=== PATIENT | female | born 1970 | race Caucasian/White ===

== ENCOUNTER 2021-10-19 16:59 | Outpatient (REF) | payer MEDICAID, SELFPAY ==
[2021-10-21 09:11] LABS: Carbohydrate Antigen 19-9 20 U/mL (<34)
== END 2021-10-19 17:00 | disposition home or self-care (01) ==
LOC: HO.LAB 16:59
PROVIDERS: PCP Internal Medicine; Visit Provider Internal Medicine
DX: K86.2 Cyst of pancreas (principal); D49.0 Neoplasm of unspecified behavior of digestive system
CPT/HCPCS: 36415; 86301

== ENCOUNTER 2022-07-19 16:59 | Outpatient (REF) | payer MEDICAID, SELFPAY ==
[2022-07-19 17:46] LABS: Blood Urea Nitrogen 15 mg/dL (9-16); Estimated Glomerular Filt Rate > 60
[2022-07-19 18:08] LABS: Thyroid Stimulating Hormone 0.82 uIU/mL (0.32-4.0)
== END 2022-07-19 17:00 | disposition home or self-care (01) ==
LOC: HO.LAB 16:59
PROVIDERS: Absent Provider Internal Medicine; Visit Provider Internal Medicine
DX: E03.8 Other specified hypothyroidism (principal); D49.0 Neoplasm of unspecified behavior of digestive system; K86.2 Cyst of pancreas
CPT/HCPCS: 36415; 82565; 84443; 84520

== ENCOUNTER 2022-11-16 11:54 | Outpatient (REF) | payer MEDICAID, SELFPAY ==
--- NOTE | 2022-11-16 10:00 | EMG_ITS ---
Right median and ulnar motor and sensory studies were performed. Right radial sensory and median and lateral antecubital sensory studies were performed. Needle examination was performed. IMPRESSION: This study did not reveal any significant abnormality to suggest radiculopathy, plexopathy, or entrapment neuropathy. MD FELIPE White/MODL / [id number]
== END 2022-11-16 11:55 | disposition home or self-care (01) ==
LOC: HO.NEURO 11:54
PROVIDERS: Visit Provider Internal Medicine
DX: M54.12 Radiculopathy, cervical region (principal)
CPT/HCPCS: 95886; 95910

== ENCOUNTER 2025-06-03 11:06 | Outpatient (REF) | payer MEDICAID, SELFPAY ==
[2025-06-03 13:57] LABS: Cholesterol 205 mg/dL (<200); HDL Cholesterol 63 mg/dL (>40); Thyroid Stimulating Hormone 2.90 uIU/mL (0.32-4.0); Triglycerides 61 mg/dL (<150)
== END 2025-06-03 11:07 | disposition home or self-care (01) ==
LOC: HO.10HDL 11:06
PROVIDERS: Visit Provider Internal Medicine
DX: E03.8 Other specified hypothyroidism (principal); E78.00 Pure hypercholesterolemia, unspecified; F41.0 Panic disorder [episodic paroxysmal anxiety]; R00.2 Palpitations
CPT/HCPCS: 36415; 80061; 84443

== ENCOUNTER 2025-08-31 14:11 | Outpatient (AMB) | payer OTHER, MEDICAID, SELFPAY ==
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
--- OUTSIDE RECORDS SUMMARY | 2025-08-31 17:34 | XMS_ITS | Encounter Summary ---
Author Organization [facility] Address [address] [place] [address] Phone Care Team Providers Care Golf Cart Attendant Name Role Phone Pcp, Not Required Primary Care Provider Unavaila ble Reason for Referral * Consultation (Within 1 month) - Closed Specialty Diagnoses / Procedures Referred By Contac t Referred To Contact Gastroenterology Diagnoses Generalized abdominal pain Nausea Acute pain in female pelvis Low back pain, unspecified back pain laterality, unspecified chronicity, with sciatica presence unspecified System, Provider Not In, [facility] [address] [address] Disha Polanco MD Phone: tel: fax: mailto:[email or web address] Referral ID Status Reason Start Date Expiration Date Visits Re quested Visits Authorized [id number] Closed 11/08/2017 11/08/2018 1 1 Encounter Details Date Type Department Care Team (Latest Contact Info) Description 11/08/2017 Transcribe Orders [facility] [address] [place] [address], [address] [place] [address] Pcp, Not Required [address] [place] [id number] Generalized abdominal pain (Primary Dx); Nausea; Acute pain in female pelvis; Low back pain, unspecified back pain laterality, unspecified chronicity, with sciatica presence unspecified Social History Tobacco Use Types Packs/Day Years Used Date Smoking Tobacco: Never Assessed Comments Unknown Sex and Gender Information Value Date Recorded Sex Assigned at Not on file Legal Sex Female 8:03 AM EST Gender Identity Not on file Sexual Orientation Not on file documented as of this encounter Plan of Treatment Scheduled Referrals Name Type Priority Associated Diagnoses Order Schedule Ambulatory referral to [facility] (Consult Requests Only) Outpatient Referral Routine Generalized abdominal pain Nausea Acute pain in female pelvis Low back pain, unspecified back pain laterality, unspecified chronicity, with sciatica presence unspecified Ordered: 11/08/2017 documented as of this encounter Visit Diagnoses Diagnosis Generalized abdominal pain- Primary Abdominal pain, generalized Nausea Nausea alone Acute pain in female pelvis Low back pain, unspecified back pain laterality, unspecified chronicity, with sciatica presence unspecified documented in this encounter Care Teams Golf Cart Attendant Relationship Specialty Start Date End Date Pcp, Not Required [address] [place] [address] PCP - General 11/05/17 documented as of this encounter Additional Source Comments The information contained in this document represents components of the legal health record. It is not the complete legal health record.[facility]
--- OUTSIDE RECORDS SUMMARY | 2025-08-31 17:34 | XMS_ITS | Clinical Summary ---
Author Organization [employer] [facility] [employer] Address [address] [place] [address] Care Team Providers Care Overhead Crane Technician Name Role Phone Clarisa BENJAMIN MD, Tre Martines Primary Care Provide r Allergies Active Allergy Reactions Criticality Noted Date Comments No Known Allergies Medications DULoxetine (CYMBALTA) 60 MG capsule 8 Active SYNTHROID 125 mcg tablet 8 Active lorazepam (ATIVAN) 2 MG tablet TAKE ONE TABLET BY MOUTH EVERY NIGHT AT BEDTIME 2 7 Active pantoprazole (PROTONIX) 40 MG tablet pantoprazole 40 mg tablet,delayed release Active azithromycin (ZITHROMAX) 250 MG tablet Take two tablets by mouth once on Day 1, then take one tablet by mouth daily on Days 2-5. 6 tablet 8 Active levothyroxine (SYNTHROID) 125 MCG tablet Synthroid 125 mcg tablet Active Immunizations Immunization Administration Dates Next Due Flucelvax Trivalent PFS IM; Without Preservative (18+ mos) 07/15/2018 Social History Tobacco Use Types Packs/Day Years Used Date Smoking Tobacco: Never Smokeless Tobacco: Never Comments No Sex and Gender Information Value Date Recorded Sex Assigned at Not on file Legal Sex Female 4:09 PM EST Gender Identity Not on file Sexual Orientation Not on file Last Filed Vital Signs Vital Sign [place] Time Taken Comments Blood Pressure 120/70 07/16/2019 11:53 AM EDT Pulse 76 07/16/2019 11:53 AM EDT Temperature 36.5 C (97.7 F) 07/16/2019 11:53 AM EDT Respiratory Rate 16 07/16/2019 11:53 AM EDT Oxygen Saturation 99% 07/16/2019 11:53 AM EDT Inhaled Oxygen Concentration - - Weight 71.7 kg (158 lb) 07/16/2019 11:53 AM EDT Height 165.1 cm (5' 5 ) 07/16/2019 11:53 AM EDT Body Mass Index 26.29 07/16/2019 11:53 AM EDT Plan of Treatment Not on file Medical Devices Not on file Insurance [facility] Care Teams Overhead Crane Technician Relationship Specialty Start Date End Date Tre Mckenna III, MD [address] [id number] PCP - Retail Sales Representative 07/16/19
--- OUTSIDE RECORDS SUMMARY | 2025-08-31 17:34 | XMS_ITS | Clinical Summary ---
Author Organization [facility] Address [address] [place] [address] Care Team Providers Care Bench Inspector Name Role Phone Christie Zhao Primary Care Provider [phone] Allergies Active Allergy Reactions Criticality Noted Date Comments [place] Unknown 05/29/2025 Medications escitalopram (LEXAPRO) 10 mg tablet TAKE 1/2 TABLET DAILY FOR 1 WEEK, THEN 1 TABLET DAILY 05/02/2025 Active levothyroxine (SYNTHROID, LEVOTHROID) 100 mcg tablet SMARTSI Tablet(s) By Mouth Daily 01/26/2025 Active LORazepam (ATIVAN) 1 mg tablet 05/27/2025 Active Active Problems Problem Noted Date Diagnosed Date Hypothyroidism 05/09/2013 Encounters Date Type Department Care Team Description 06/02/2025 8:55 AM EDT - 06/02/2025 11:59 PM EDT Hospital Encounter [facility] [address] [place] [address] Discharge Disposition: Home or Self Care (01) from Last 3 Months Social History Tobacco Use Types Packs/Day Years Used Date Smoking Tobacco: Former Smokeless Tobacco: Never Tobacco Cessation:Counseling Given: Not Answered Comments:: Alcohol Use Standard Drinks/Week Comments Not Currently 0 (1 standard drink = 0.6 oz pur e alcohol) Comments Unknown Sex and Gender Information Value Date Recorded Sex Assigned at Female 05/29/2025 6:12 PM EDT Legal Sex Female 6:55 AM EDT Gender Identity Not on file Sexual Orientation Not on file Last Filed Vital Signs Vital Sign [place] Time Taken Comments Blood Pressure 120/69 05/31/2025 3:56 PM EDT Pulse 66 05/31/2025 3:56 PM EDT Temperature 36.4 C (97.6 F) 05/31/2025 3:56 PM EDT Respiratory Rate 20 05/31/2025 3:56 PM EDT Oxygen Saturation 100% 05/31/2025 3:56 PM EDT Inhaled Oxygen Concentration - - Weight 67.1 kg (148 lb) 05/31/2025 1:00 PM EDT Height 165.1 cm (5' 5 ) 05/31/2025 1:00 PM EDT Body Mass Index 24.63 05/31/2025 1:00 PM EDT Plan of Treatment Health Maintenance Due Date Last Done Comments Cervical Cancer Screening 1968 Cologuard 1968 Colon Cancer Screening 1968 Colonoscopy 1968 FOBT / Fit Test 1968 HIV Screening 1968 HPV and Pap Smear 1968 Hepatitis C Screening 1968 Pap Smear 1968 Sigmoidoscopy 1968 Hepatitis B Vaccines (1 of 3 - 19+ 3-dose series) 1987 DTaP,Tdap,and Td Vaccines (1 - Tdap) 06/30/2007 09/2 06/2007 CT Lung Cancer Screening (Baseline) 2018 Pneumococcal Vaccine: 50+ Ye ars (1 of 1 - PCV) 2018 Zoster Vaccines (1 of 2) 2018 Alcohol/Substance Use Screening 10/01/2024 Depression Screening and Follow-Up 10/01/2024 Social Drivers of Health Malu ual Screening 10/01/2024 Influenza Vaccine (#1) 2025 07/15/2018 COVID-19 Vaccine ( season) 2025 01/18/2022, 01/13/2021, 12/16/2020 Mammogram 10/13/2026 10/13/2024, 10/13/2024 Procedures * Due to [place] [employer] law, this organization might not be sharing negative HIV tests. Procedure Name Priority Date/Time Associated Diagnosis Comments MRI BRAIN WO CONTRAST STAT 06/02/2025 9:20 AM EDT from Last 3 Months Results * Due to [place] [employer] law, this organization might not be sharing negative HIV tests. * MRI Brain without Contrast (06/02/2025 9:20 AM EDT) Anatomical Region Laterality Modality Head and Neck Magnetic Resonan ce 06/02/2025 8:55 AM EDT Impressions 06/02/2025 10:28 AM EDT 1. No acute intracranial abnormality. 2. Widening of a folia in right superior cerebellar hemisphere, normal variant versus small regional tissue loss from remote insult. If this radiology report contains a blank impression section, it is an incomplete radiology report. Please contact the interpreting radiologist or applicable radiology division as soon as possible to obtain the completed interpretation. Workstation ID: [id number] Narrative 06/02/2025 10:28 AM EDT EXAMINATION: MRI brain without contrast TECHNIQUE: Multiplanar multisequence MR imaging of brain performed without intravenous contrast administration. CLINICAL INFORMATION: right sided facial paresthesias, mild right carotid stenosis, MRI per neurp recs FINDINGS: No acute infarction or acute hemorrhage. No significant shift of midline structures. Widening of a folia in the right superior cerebellar hemisphere. The brain parenchyma otherwise shows normal signal characteristics. Ventricles and sulci are normal in size. Small focal calcification/ossification based on the falx in right frontal region, likely a benign finding. Normal proximal vascular flow voids are preserved. The orbits, sellar/parasellar structures and craniovertebral junction show no significant abnormality on this nontargeted study. Trace mucosal thickening in left frontal sinus. Resulting Agency Comment [id number] Procedure Note Sushant Lea MD - 06/02/2025 EXAMINATION: MRI brain without contrast TECHNIQUE: Multiplanar multisequence MR imaging of brain performed withoutintravenous contrast administration. CLINICAL INFORMATION: right sided facial paresthesias, mild right carotid stenosis, MRI perneurp recs FINDINGS: No acute infarction or acute hemorrhage. No significant shift of midlinestructures. Widening of a folia in the right superior cerebellar hemisphere. Thebrain parenchyma otherwise shows normal signal characteristics.Ventricles and sulci are normal in size. Small focal calcification/ossification based on the falx in right frontalregion, likely a benign finding. Normal proximal vascular flow voids are preserved. The orbits, sellar/parasellar structures and craniovertebral junction showno significant abnormality on this nontargeted study. Trace mucosal thickening in left frontal sinus. IMPRESSION: 1. No acute intracranial abnormality. 2. Widening of a folia in right superior cerebellar hemisphere, normalvariant versus small regional tissue loss from remote insult. If this radiology report contains a blank impression section, it is anincomplete radiology report. Please contact the interpreting radiologistor applicable radiology division as soon as possible to obtain thecompleted interpretation. Workstation ID: [id number] [facility] MRI PROCEDURES Final Result from Last 3 Months Insurance [facility] Care Teams Bench Inspector Relationship Specialty Start Date End Date VuChristie peña [address] [facility] [address] [place] [address] PCP - General Internal Medicine 05/29/25
--- OUTSIDE RECORDS SUMMARY | 2025-08-31 17:34 | XMS_ITS | Clinical Summary ---
Author Organization [facility] Address [address] [place] [phone] Phone Care Team Providers Care Hris Manager Name Role Phone Pcp, Not Required Primary Care Provider Unavaila ble Social History Tobacco Use Types Packs/Day Years Used Date Smoking Tobacco: Never Assessed Education Answer Date Recorded Are you interested in more education? Not on adrian e 01/26/2023 Are you concerned about learning? Not on file 01/26/2023 No 01/26/2023 No 01/26/2023 Digital Access Answer Date Recorded No 02/24/2023 No 02/24/2023 No 02/24/2023 Reliable internet access at home? Not on file 02/24/2023 Device with a working camera? Not on file Comments Unknown Sex and Gender Information Value Date Recorded Sex Assigned at Not on file Legal Sex Female 8:03 AM EST Gender Identity Not on file Sexual Orientation Not on file Plan of Treatment Health Maintenance Due Date Last Done Comments Adult Td,Tdap Booster 1968 LIPID PANEL 1968 DEPRESSION SCREENING 1980 SMOKING Hx and SMOKELESS TOBACCO SCREENING 1981 HEPATITIS C SCREENING 1986 HIV ONE-TIME SCREENING (18-6 5 YEARS) 1986 PAP SMEAR 1989 MAMMOGRAM 2008 COLOGUARD 2013 COLONOSCOPY 2013 COLORECTAL CANCER SCREENING 2013 FIT TEST 2013 FOBT 2013 SIGMOIDOSCOPY 2013 VIRTUAL COLONOSCOPY 2013 PNEUMOCOCCAL VACCINES (50+ years) (1 of 1 - PCV) 2018 ZOSTER VACCINES (1 of 2) 2018 INFLUENZA VACCINE (#1) 2025 07/15/2018 COVID-19 VACCINE (3 - 2024-2 6 season) 2025 01/13/2021, 12/16/2020 RSV VACCINE (1 - 1-dose 75+ series) 2043 HEPATITIS A VACCINES Aged Out No long er eligible based on patient's age to complete this topic HIB VACCINES Aged Out No longer eligi ble based on patient's age to complete this topic MENINGOCOCCAL VACCINES (ACWY) Aged Out No longer eligible based on patient's age to complete this topic MENINGOCOCCAL VACCINES (B) Aged Out N o longer eligible based on patient's age to complete this topic Medical Devices Not on file Insurance [employer] [facility] [employer] FEDERAL Original [employer]AL [employer] Care Teams Hris Manager Relationship Specialty Start Date End Date Pcp, Not Required [address] [place] [id number] PCP - General 11/05/17 Additional Source Comments The information contained in this document represents components of the legal health record. It is not the complete legal health record.[facility]
--- OUTSIDE RECORDS SUMMARY | 2025-08-31 17:34 | XMS_ITS | Clinical Summary ---
Author Organization [facility] Address [address] [place] [phone] Phone Care Team Providers Care Catalogue And Special Products Manager Name Role Phone Christie Ly MD Primary Care Provider [phone] Family History Medical History Relation Name Comments Breast cancer Father's Sister Relation Name Status Comments Father's Sister Social History Tobacco Use Types Packs/Day Years Used Date Smoking Tobacco: Never Assessed Comments No Sex and Gender Information Value Date Recorded Sex Assigned at Female 10/10/2024 2:09 PM EST Legal Sex Female 11:56 AM EST Gender Identity Female 10/10/2024 2:09 PM EST Sexual Orientation Not on file Obstetrics History Para Term AB IAB SAB Ectopic Multiple Livin g Live Births 2 Last Filed Vital Signs Vital Sign Reading Time Taken Comments Blood Pressure - - Pulse - - Temperature - - Respiratory Rate - - Oxygen Saturation - - Inhaled Oxygen Concentration - - Weight 68 kg (150 lb) 10/13/2024 12:53 PM EST Height 165.1 cm (5' 5 ) 10/13/2024 12:53 PM EST Body Mass Index 24.96 10/13/2024 12:53 PM EST Plan of Treatment Upcoming Encounters Date Type Department Care Team (Late st Contact Info) Description 10/19/2025 1:00 PM EST [facility]ointment [facility] [address] [phone] Health Maintenance Due Date Last Done Comments Colorectal Cancer Screening: Colonoscopy 1968 Hepatitis B Vaccines (1 of 3 - 19+ 3-dose series) 1987 Cervical Cancer Screening: Pap Smear 1989 DTaP,Tdap,and Td Vaccines (2 - Td or Tdap) 06/29/2017 06/29/2007 Pneumococcal Vaccine: 50+ Years (1 of 1 - PCV) 2018 Zoster Vaccines (1 of 2) 2018 HIV Screening 08/29/2022 Hepatitis C Screening 08/29/2022 Social Influencers of Health Screening 08/29/2022 Depression Screening 10/01/2024 COVID-19 Vaccine ( season) 2025 01/18/2022, 01/13/2021, 12/16/2020 Influenza Vaccine (#1) 2025 07/15/2018 Breast Cancer Screening 10/13/2026 10/13/19, 09/04/2022, 07/08/2021, Additional history exists RSV Immunization Adult Patients (1 - 1-dose 75+ series) 2043 HIB Vaccines Aged Out No longer eligi ble based on patient's age to complete this topic HPV Vaccines Aged Out No longer eligi ble based on patient's age to complete this topic Hepatitis A Vaccines Aged Out No long er eligible based on patient's age to complete this topic IPV Vaccines Aged Out No longer eligi ble based on patient's age to complete this topic MMR Vaccines Aged Out No longer eligi ble based on patient's age to complete this topic Meningococcal ACWY Vaccine Aged Out N o longer eligible based on patient's age to complete this topic Meningococcal B Vaccine Aged Out No l onger eligible based on patient's age to complete this topic RSV Immunization Patients Under 20 months Aged Out No longer eligible based on patient's age to complete this topic Varicella Vaccines Aged Out No longer eligible based on patient's age to complete this topic Procedures Procedure Name Priority Date/Time Associated Diagnosis Comments MG MAMMO DIGITAL DIAGNOSTIC W CHRISTIAN BILAT Routine 10/13/2024 1:16 PM EST Follow-up exam from Last 3 Months or Most Recently Relevant to Health Maintenance Results * MG Mammo Digital Diagnostic w Christian bilat (10/13/2024 1:16 PM EST) Anatomical Region Laterality Modality Breast Bilateral Mammography 10/13/2024 1:10 PM EST Impressions 10/13/2024 1:18 PM EST No mammographic evidence of malignancy. No suspicious interval change. The patient should resume screening A negative mammogram in the presence of a clinically suspicious palpable abnormality does not preclude the possibility of malignancy or alter the indications for biopsy. ASSESSMENT: BI-RADS 2: BENIGN RECOMMENDATION(S): 1: Routine screening mammogram BILATERAL in 1 year. -------- FINAL REPORT -------- Dictated By: Miller Nieto Dictated Date: 10/13/2024 13:10 ET Assigned Physician: Miller Nieto Reviewed and Electronically Signed By: Miller Nieto Signed Date: 10/13/2024 13:18 ET Workstation ID: [id number] Transcribed By: Self Edit Transcribed Date: 10/13/2024 13:10 ET Narrative 10/13/2024 1:18 PM EST EXAM: DIAGNOSTIC MAMMOGRAPHY, BILATERAL HISTORY: Probably benign right breast calcifications. Evaluate for interval changes COMPARISON: 10/08/2023, 04/02/2023, 09/08/2022, 09/04/2022, 07/07/2021, 06/24/2020 TECHNIQUE: Synthesized CC and MLO projections of each breast. Tomosynthesis of each breast in the CC and MLO projections. ADDITIONAL IMAGING: Spot magnified views of the right breast in multiple projections Computer-aided detection was employed with the [employer] 3-D. TISSUE DENSITY: The breasts are heterogeneously dense, which may obscure small masses. (BI-RADS category C) FINDINGS: RIGHT BREAST: The probably benign calcifications demonstrated in the right breast previously have become less prominent. There is no suspicious grouping remaining. No additional suspicious right breast findings LEFT BREAST: No suspicious mass. No suspicious calcification. No distortion. No additional suspicious left breast findings Procedure Note Miller Nieto MD - 10/13/2024 EXAM: DIAGNOSTIC MAMMOGRAPHY, BILATERAL HISTORY: Probably benign right breast calcifications. Evaluate forinterval changes COMPARISON: 10/08/2023, 04/02/2023, 09/08/2022, 09/04/2022, 07/07/2021,06/24/2020 TECHNIQUE: Synthesized CC and MLO projections of each breast.Tomosynthesis of each breast in the CC and MLO projections. ADDITIONAL IMAGING: Spot magnified views of the right breast in multipleprojections Computer-aided detection was employed with the iCAD profound AI 3-D. TISSUE DENSITY: The breasts are heterogeneously dense, which may obscuresmall masses. (BI-RADS category C) FINDINGS: RIGHT BREAST: The probably benign calcifications demonstrated in the right breastpreviously have become less prominent. There is no suspicious groupingremaining. No additional suspicious right breast findings LEFT BREAST: No suspicious mass. No suspicious calcification. No distortion. Noadditional suspicious left breast findings IMPRESSION: No mammographic evidence of malignancy. No suspicious interval change. The patient should resume screening A negative mammogram in the presence of a clinically suspicious palpableabnormality does not preclude the possibility of malignancy or alter theindications for biopsy. ASSESSMENT: BI-RADS 2: BENIGN RECOMMENDATION(S): 1: Routine screening mammogram BILATERAL in 1 year. -------- FINAL REPORT -------- Dictated By: Miller Nieto Dictated Date: 10/13/2024 13:10 ET Assigned Physician: Miller Nieto Reviewed and Electronically Signed By: Miller Nieto Signed Date: 10/13/2024 13:18 ET Workstation ID: [id number] Transcribed By: Self Edit Transcribed Date: 10/13/2024 13:10 ET Christie Ly MD IMG BI PROCEDURES Final Resul t from Last 3 Months or Most Recently Relevant to Health Maintenance Insurance [employer] Care Teams Catalogue And Special Products Manager Relationship Specialty Start Date End Date Adlakha, Christie, MD [address] [place] [address] [place] [id number] PCP - General Internal Medicine 10/13/24
--- OUTSIDE RECORDS SUMMARY | 2025-08-31 17:34 | XMS_ITS | Data Portability ---
Author Organization [facility] - IP Address [address] [place] [address] Care Team Providers Care Construction Rep Name Role Phone JONAH MORE Primary Care Provider Assessment No assessment recorded. Plan of Treatment Reminders Order Date Submit Date Provider Last Modified By Organization Details Last Modified Time Details Appointments None record ed. Lab None record ed. Referral None record ed. Procedures None record ed. Surgeries None record ed. Imaging None record ed. Medication Orders None record ed. Patient TargetsNo targets recorded. Patient InstructionsNo instructions recorded. Reason for Referral None Reported. Results Created Date Observation Date Name Description Value Unit Range Abnormal Flag Note LastModifiedBy Organization Detail LastModifiedTime 11/21/19 18 11/06/2017 MRI, abdom en, w/wo contr ast No observ ation record ed. kaziz Not Available 2017 19:38:20 Result Notes None recorded. Problems Name Problem SNOMED Code Status Onset Date Resolution Date Notes Provider Name and Address Organization Details Recorded Time Hyperthyroidism [id number] Active 2017 [place] [facility] 17:49:42 Problem Notes None recorded. Medical Equipment None Reported. Allergies No known drug allergies Medications Name Sig Start Date Stop Date Status Note LastModified by Organization Details LastModified Time amoxicillin 500 mg capsule 11/21 completed Not Available Not Available Not Available terconazole 0.4 % vaginal cream 11/21 completed Not Available Not Available Not Available bupropion HCl SR 150 mg tablet,12 hr sustained-r elease 11/21 completed Not Available Not Available Not Available Lidocaine Viscous 2 % mucosal solution 11/21 completed Not Available Not Available Not Available hydrocodone 5 mg-acetamin ophen 325 mg tablet 11/21 completed Not Available Not Available Not Available Synthroid 125 mcg tablet Take 0.125 microgram s every day by oral route as directed for 30 days. active Not Available Not Available No t Available triamcinolo ne acetonide 0.1 % topical cream 11/21 completed Not Available Not Available Not Available oxycodone-a cetaminophe n 5 mg-325 mg tablet 11/21 completed Not Available Not Available Not Available lorazepam 2 mg tablet Take 1 tablet every day by oral route at bedtime. active Not Available Not Available No t Available benzonatate 100 mg capsule 11/21 completed Not Available Not Available Not Available pantoprazol e 40 mg tablet,miguel ángel yed release TAKE ONE TABLET BY MOUTH EVERY DAY 2017 active Not Available Not Available Not Avai lable omeprazole 20 mg capsule,del ayed release TAKE ONE TABLET ONCE A DAY DIRECTED 2017 active Not Available Not Available Not Avai lable lorazepam 1 mg tablet 11/21 completed Not Available Not Available Not Available amoxicillin 875 mg-potassiu m clavulanate 125 mg tablet 11/21 completed Not Available Not Available Not Available bupropion HCl XL 300 mg 24 hr tablet, extended release 11/21 completed Not Available Not Available Not Available duloxetine 30 mg capsule,del ayed release Take 2 capsules every day by oral route at bedtime. 01/15 completed Not Available Not Available Not Available duloxetine 60 mg capsule,del ayed release 01/15 completed Not Available Not Available Not Available Cymbalta 20 mg capsule,del ayed release Take 1 capsule every day by oral route. 11/26 completed Not Available Not Available Not Available Vitals Date Recorded Body height Body mass index (BMI) Body weight Provider Name and Address Organization Details Last Updated DateTime 11/21/2017 165.1 cm 24.3 kg/m2 23375.49 g amanda chery [place] - [facility] 11/21/2017 17:06:26 Date Recorded Body height Body mass index (BMI) Body weight Heart rate Systolic And Diastolic Provider Name and Address Organization Details Last Updated DateTime 01/15/2018 165.1 cm 24.1 kg/m2 28092.89 g 74 /min 128/78 mm[Hg] [place] [facility] 01/15/2018 17:47:58 Social History Question Answer Notes LastModified by Organizat ion Details LastModified Time Tobacco Smoking Status Never Smoker amanda vik [place] - [facility] 11/21/2017 17:14:45 What Was The Date Of Your Most Recent Tobacco Screening? 01/15/2018 Information n ot available 04/23/2019 How Much Tobacco Do You Smoke? No [email or web address] Information not available 01/15/2018 Sex: Unknown Functional Status None recorded. Mental Status None recorded. Family History Nothing Reported. Medical History Condition Response Hypertension N Gynecological HistoryNo gynecological history recorded. Obstetrics History GPAL:G 0 P 0 0 0 0 Past Encounters Encounter ID Performer Location Encounter Start Date Encounter Closed Date Diagnosis/Indication Diagnosis SNOMED-CT Code Diagnosis ICD10 Code Diagnosis IMO Codes Diagnosis Note [id number] [address] [place] [address] 11/21/2017 17:02:38 11/21/2017 21:20:18 [id number] [facility] [address] [place] [address] 01/15/2018 17:45:34 01/15/2018 19:10:56 Health Concerns Section Related Observation LastModified by Organization Detai ls LastModified Time None Recorded Concern Status LastModified by Organization Details LastModified Time None Recorded Advance Directives Directive None Recorded Payers Insurance Date Sequence Insurance Name Policy Number Policy Pat Covered Member ID Pat Member ID Guarantor Name 01/14/2018 1 [place] [employer] 111 Mindi A Bready [id number] Mindi Bready OBGyn Episode No OBEpisode recorded.
== END 2025-08-31 14:48 | disposition home or self-care (01) ==
PROVIDERS: PCP Internal Medicine; Visit Provider Psychiatry & Neurology Neurology
DX: G40.209 Localization-related (focal) (partial) symptomatic epilepsy and epileptic syndromes with complex partial seizures, not intractable, without status epilepticus (principal)
CPT/HCPCS: 99204